=== PATIENT | male | born 1945 | race Caucasian/White ===

== ENCOUNTER 2016-07-04 10:00 | Inpatient (IN) | payer BC, MEDICARE ==
[~2016-07-04] VITALS: Ht 177.8 cm; Wt 105.7 kg
--- NOTE | ~2016-07-04 | DS ---
PATIENT'S NAME: LALITA PABON [facility] AGE: 70 Y [address] ROOM: [address] [place], [place] [address] LOCATION: GPCU ADMIT DATE: 07/04/2016 Discharge Summary DISCHARGE DATE: 07/12/2016 FAMILY PHYSICIAN: Sharon Jenkins MD ATTENDING PHYSICIAN: Gabe Haynes HOSPITAL COURSE: The patient is a 70-year-old white male who was transferred here from [facility] and Dr. Gonzalez for findings that include severe aortic stenosis and multivessel coronary artery disease. He was accepted in transfer for anticipated aortic valve replacement and coronary artery bypass grafting. In addition, he had a history with a right index finger osteomyelitis, and we were asked to continue him on antibiotic therapy through July [address] Rivera in [place], infectious disease specialist. Orthopedic consult was also warranted and Dr. Resendiz provided this service in order to decide whether the patient would undergo an irrigation and debridement and removal of an antibiotic spacer and fusion of the digit or a primary amputation. These details were worked out prior to our heart surgery with a decision being made that this will be determined at a later date. On 07/06/2016, the patient presented to the operative suite for an aortic valve replacement with a 25 Magna Ease bioprosthetic valve as well as coronary artery bypass grafting x5 vessels. This consisted of a left internal mammary artery bypass to the left anterior descending artery, a reverse saphenous vein graft to the diagonal, reverse saphenous vein graft to the obtuse marginal #1, reverse saphenous vein graft to obtuse marginal #2, and reverse saphenous vein graft to the acute marginal. The patient tolerated the surgery without complication and transferred up to the ICU postoperatively. He extubated without complication on the same operative day. His lines and drips were discontinued by postoperative day one. He was initiated on Coumadin for the aortic valve replacement. He was transferred to the progressive care floor. The patient was maintained on his antibiotic therapy, Cubicin for the right index finger osteomyelitis. He worked with cardiac rehab for reconditioning. His chest tubes, pacemaking wires, and Coles catheter were discontinued in the routine postoperative timeframe. The patient had no complications with postoperative atrial fibrillation. He had no wound healing issues as well. Overall, the patient had an uneventful hospital course and was deemed stable for discharge on 07/12/2016. Care Management worked with the patient for any discharge details. He required no home health care nursing or any skilled care. He did require continuation of his IV antibiotic infusions of Cubicin that he was receiving at the [facility]. These arrangements were made by the Care Management and orders sent for continuum of care. DISCHARGE ORDERS: Include a cardiac prudent diet. Activity levels as per the open heart surgery discharge summary sheet. The patient was asked to follow PATIENT'S NAME: LALITA PABON [facility] AGE: 70 Y [address] ROOM: [id number] [place], [place] [address] LOCATION: GPCU ADMIT DATE: 07/04/2016 Discharge Summary DISCHARGE DATE: 07/12/2016 FAMILY PHYSICIAN: Sharon Jenkins MD ATTENDING PHYSICIAN: Gabe Haynes up with Dr. Haynes, Dr. Gonzalez, and Dr. Rivera. Appointments were made at discharge. The patient will present to the [facility] on the evening of July 12 and July 13 for two more IV infusions of Cubicin, which will conclude his required dosages. He will follow with cardiac rehab and arrangements will be made for this to occur at the [facility]. The patient will also set up with an orthopedic provider in [place] regarding his right index finger, and the patient is going to do this on his own. We will have a PT/INR drawn on of this week and faxed over to our office for adjustment. The patient will require no dressing changes. FINAL DIAGNOSES: Includes: 1. Severe aortic stenosis. 2. Multivessel coronary artery disease. 3. Dyslipidemia. 4. Hypothyroidism. 5. History of pancreatic cancer, status post Whipple procedure. 6. Osteoarthritis. 7. Right index finger osteomyelitis. 8. Gastroesophageal reflux disease. DISCHARGE MEDICATIONS: Include: 1. Levothyroxine 75 mcg daily. 2. Acidophilus one tablet b.i.d. 3. Prilosec 20 mg daily. 4. Tylenol 325 to 650 mg q.4 hours p.r.n. pain. 5. Aspirin 81 mg daily. 6. Lipase/protease/amylase capsule 93459 units orally three times a day with meals. 7. Cubicin 500 mg at bedtime. 8. Amiodarone 200 mg twice a day. 9. Carvedilol 3.125 mg daily. 10. Colace 100 mg daily. 11. Lasix 40 mg daily. 12. Lisinopril 2.5 mg twice a day. 13. MiraLax 17 g daily/p.r.n. 14. Coumadin 2.5 mg daily. 15. Potassium chloride 20 mEq twice a day. 16. Albuterol HFA two puffs per inhalation q.6 hours and p.r.n. shortness of breath. 17. Gillette 5/325 one to two every 4 to 6 hours as needed. 18. Restore Hydrogel to apply topically daily after showering. 19. Ferrous sulfate one tab daily. The patient verbalizes understanding of the discharge instructions. The patient is discharged to home in stable condition. PATIENT'S NAME: LALITA PABON [facility] AGE: 70 Y [address] ROOM: [place] [address] [facility] AD[facility] DATE: 07/04/2016 Discharge Summary DISCHARGE DATE: 07/12/2016 FAMILY PHYSICIAN: Sharon Jenkins MD ATTENDING PHYSICIAN: Gabe Haynes PAL LOZANO APRN FOR GABE HAYNES DO DLQ/modl /[id number] d: 07/28/16 0340 t: 08/01/16 1704, DISCHARGE SUMMARY
--- NOTE | ~2016-07-04 | HP ---
PATIENT'S NAME: LALITA PABON [facility] AGE: 70 Y [address] ROOM: [address] [place], [place] [address] LOCATION: GPCU ADMIT DATE: 07/04/2016 History & Physical DISCHARGE DATE: FAMILY PHYSICIAN: Sharon Jenkins MD ATTENDING PHYSICIAN: Gabe Haynes DATE OF SERVICE: CHIEF COMPLAINT: Multivessel coronary artery disease/severe aortic stenosis. HISTORY OF PRESENT ILLNESS: The patient is a very pleasant 70-year-old white male, who was transferred here from [facility] by Dr. Gonzalez for surgical revascularization as well as an aortic valve replacement. Overall, the patient has been stable with really no symptomatology. Interestingly, his story starts out with having a traumatic accident to his right index finger whereby he cut it with a chain saw and tore the ligament. This involved the distal interphalangeal joint. It became infected, and he was working with the Infectious Disease team. He was being seen by Dr. Rivera in [place]. During the course of the examination, a heart murmur was noted. The patient was sent to a icing mixer to have this evaluated. On June 02, 2016, the patient underwent a FARIDA with Dr. Gonzalez, which revealed severe aortic stenosis consisting of a peak velocity of 4.4 m/sec with a mean gradient of 49, and a calculated aortic valve area of 0.7 cm2. The ejection fraction was noted to be at 60% to 65%. From their, a discussion of an aortic valve replacement ensued. The patient went electively on Sunday to have a cardiac catheterization for delineation of coronaries prior to undergoing an aortic valve replacement. What was found was multivessel coronary artery disease with occlusion to the LAD, diagonal, circumflex, and to the right system as well. Dr. Gonzalez spoke to the patient with regard to undergoing coronary artery bypass grafting as well as aortic valve replacement, for which the patient consented. With regard to the right index finger osteomyelitis, the patient has been on Cubicin IV antibiotics for septic arthritis/osteomyelitis. This was diagnosed on 06/01/2016. The patient is required to complete 6 weeks of IV antibiotics, which will conclude after the dosage on July 13, 2016. In addition, the patient underwent an incision and debridement of the right index finger, for which pinning and antibiotic cement were placed. The patient is going to need further evaluation of the digit. The patient's physician in [place] has left [facility], and the patient is without an orthopedic provider. He will either require an amputation or removal of the cement with placement of an indefinite pin. We will assist in getting this consultation accomplished as well. PATIENT'S NAME: LALITA PABON [facility] AGE: 70 Y [address] ROOM: [place] [address] [facility] ADMIT DATE: 07/04/2016 History & Physical DISCHARGE DATE: FAMILY PHYSICIAN: Sharon Jenkins MD ATTENDING PHYSICIAN: Gabe Haynes PAST MEDICAL HISTORY: Illnesses: Pancreatic cancer, dyslipidemia, osteoarthritis, hypothyroidism, GERD, right index finger osteomyelitis/septic arthritis. Surgery/procedures: Whipple procedure, pancreatic mesh screen, incision and debridement of the right index finger with pinning and antibiotic cement procedure. ALLERGIES: CHLORHEXIDINE, WHICH CAUSES SEVERE RASH; ZYVOX, WHICH CAUSES FACIAL EDEMA AND TONGUE SWELLING; STATINS, WHICH IS MORE OF AN INTOLERANCE CONSISTING OF LEG ACHE. SOCIAL HISTORY: The patient is single. 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 He has a very remote tobacco history having smoked at the age of 16 for just 2 years. He does drink approximately 6 beers a day. He does vape marijuana and does this approximately 2 or 3 times a week. FAMILY HISTORY: His mother was known to be healthy, lived to an old age of 101. His father has a myocardial infarction at age 52. MEDICATIONS: 1. Tylenol 325 mg 1 to 2 every 4 hours p.r.n. mild pain. 2. Aspirin 81 mg daily. 3. Acidophilus 1 tablet b.i.d. 4. Levothyroxine 75 mcg daily. 5. Zenpep 2 capsules with each meal. 6. Omeprazole 20 mg daily. 7. Oxycodone 5 mg p.o. t.i.d. 8. Cubicin IV to be administered through July 13, 2016. SYSTEM REVIEW: GENERAL: No change in weight or appetite. No fever, chills, or sweats. No excessive fatigue. Overall, the patient has not had any symptomatology from his aortic stenosis or multivessel coronary artery disease. HEENT: Does have some age-related visual changes. Does wear glasses. No hearing complaints. No difficulty swallowing, change in voice, or hoarseness. He does have his own teeth. He has not had any dental issues consisting of sore gums, bleeding. He uses a waterpik. RESPIRATORY: No unusual cough, wheezing, or history of asthma. No complaints of shortness of breath, PND, or TREJO. CARDIOVASCULAR: No chest pain, chest pressure, or palpitations. Does have PATIENT'S NAME: LALITA PABON [facility] AGE: 70 Y [address] ROOM: [place] [address] [facility] ADMIT DATE: 07/04/2016 History & Physical DISCHARGE DATE: FAMILY PHYSICIAN: Sharon Jenkins MD ATTENDING PHYSICIAN: Gabe Haynes findings of a new murmur. No intermittent claudication. No complaints of edema. GI: Does have a history of GERD, for which he takes medication. No continuous nausea, vomiting, constipation, or diarrhea to complain of. : Does have a urinary frequency and some trouble starting of urinary stream. MUSCULOSKELETAL: Does not require ambulatory devices. He does, however, have a fairly significant right osteoarthritis and knee pain. He has had the right index finger traumatic injury from the chain saw. That finger overall has been rendered "useless," and if it does require amputation, he is okay with that as well. NEUROLOGIC: No frequent or severe headaches. No history of seizures, memory loss, or syncope. ENDOCRINE: No history of diabetes. He does have hypothyroidism, for which he takes medication. INTEGUMENT: No known skin diseases. PHYSICAL EXAMINATION: VITAL SIGNS: Blood pressure 157/86, pulse is 80, respirations 18, temp 97.8, O2 saturations 98% on room air, weight is 100.8 kg, height is 177.8 cm. GENERAL: He is very pleasant. He is in no acute distress. He appears younger than his stated age. HEENT: Normocephalic with EOMIs intact. Teeth appear to be in good repair. NECK: No palpable lymphadenopathy or thyromegaly. LUNGS: Clear to auscultation bilaterally. CARDIOVASCULAR: Regular rate and rhythm with murmur noted. ABDOMEN: Soft, nontender by 4 quadrants with positive bowel sounds throughout. EXTREMITIES: No overt varicosities or edema. MUSCULOSKELETAL: Good range of motion to bilateral upper and lower extremities. The right index finger is stiff, somewhat swollen but is scabbed over with no open areas. LABORATORY DATA: Lab and test results are as per HPI. IMPRESSION: 1. Multivessel coronary artery disease. 2. Severe aortic stenosis. 3. Right index finger osteomyelitis/septic arthritis. RECOMMENDATIONS AND PLAN: Dr. Haynes spoke to the patient with regard to the findings of the echocardiogram and the cardiac catheterization. Per the cardiac catheterization, the patient will need five-vessel bypass consisting of an PATIENT'S NAME: LALITA PABON [facility] AGE: 70 Y [address] ROOM: [place] [address] [facility] ADMIT DATE: 07/04/2016 History & Physical DISCHARGE DATE: FAMILY PHYSICIAN: Sharon Jenkins MD ATTENDING PHYSICIAN: Gabe Haynes LAD, obtuse marginal x2, diagonal, and RCA, also an aortic valve replacement. Valve types tissue versus mechanical were discussed as well as the risks and benefits of each type. The patient does wish to proceed with a tissue valve. Risks and benefits of surgery were discussed. Discussion of the risks includes, but were not limited to, bleeding, requiring transfusion, return to the operative suite, myocardial infarction, cerebrovascular accident, renal and/or pulmonary failure. Also discussed were arrhythmias and infection as well as operative and postoperative mortality. The length of stay and restrictions following the surgery were discussed. The patient will likely go to his girlfriend's home in [place] following his surgery for recuperation. In addition, we will have a member of the orthopedic team come and review the patient's surgical notes regarding the right index finger surgery and help determine what may be required as a next step. We will continue antibiotic therapy through July 13, 2016. We have spoken with Dr. Rivera who did state that the antibiotics could be changed over to vancomycin if needed. We would like to thank Dr. Gonzalez for allowing us to participate in the care of this very pleasant gentleman. PAL LOZANO APRN FOR GABE HAYNES DO DLQ/modl /[id number] D: [id number] T: [id number] HISTORY & PHYSICAL
--- NOTE | ~2016-07-04 | OR ---
PATIENT'S NAME: LALITA ANAND [facility] AGE: 70 Y [address] ROOM: [address] [address] LOCATION: GPCU ADMIT DATE: 07/04/2016 OR/Procedure Report DISCHARGE DATE: FAMILY PHYSICIAN: Sharon Jenkins MD ATTENDING PHYSICIAN: Gabe Adams SURGEON: Gabe Adams DO LOCKSTITCH LINING MAKER: DATE OF PROCEDURE: 07/06/2016 PREOPERATIVE DIAGNOSES: 1. Severe aortic stenosis. 2. Multivessel coronary artery disease. POSTOPERATIVE DIAGNOSES: 1. Severe aortic stenosis. 2. Multivessel coronary artery disease. PROCEDURE: 1. Aortic valve replacement with 25 Magna Ease bioprosthetic valve. 2. Coronary artery bypass grafting x5 with left internal mammary artery bypass to the left anterior descending artery; reverse saphenous vein graft to the diagonal; reverse saphenous vein graft to the obtuse marginal #1; reverse saphenous vein graft obtuse marginal #2; reverse saphenous vein graft to the acute marginal. BRIEF HISTORY: Mr. Anand is a 70-year-old white male with the above-noted diagnosis. He has been brought to the operative suite today for his procedure. Informed consent has been obtained. He was sterilely prepped and draped in the usual fashion for sternotomy with lower extremity vein harvest. A sternal incision was made. The sternum was divided in the midline with sternal saw. Concurrently to this, saphenous vein was harvested endoscopically from the lower extremities. Mammary retractor was placed. The left internal mammary artery was harvested in standard fashion utilizing surgical clips and electrocautery. Prior to its division, the patient was fully heparinized. The mammary was then divided and prepared for bypass. Mammary retractor was removed and a sternal retractor was placed. Pericardium was opened. Pericardial well created. Cannulation sutures placed in the ascending aorta, right atrium, right superior pulmonary vein for bypass and cardioplegia cannulas. The patient was then cannulated and connected to the bypass pump without difficulty. The vein was then prepared for bypass. Cardiopulmonary bypass was initiated. Crossclamp was applied. Antegrade and retrograde cardioplegia was given along with topical cold saline for cardiac arrest. During this time period, we also placed a cannula through the right superior pulmonary vein into the left ventricle for decompression during valve replacement. The ascending aorta was then opened, heavily calcified PATIENT'S NAME: LALITA ANAND [facility] AGE: 70 Y [address] ROOM: [place] [address] LOCATION: GPCU ADMIT DATE: 07/04/2016 OR/Procedure Report DISCHARGE DATE: FAMILY PHYSICIAN: Sharon Jenkins MD ATTENDING PHYSICIAN: Gabe Adams trileaflet valve was encountered, and the left and right coronary leaflets were essentially fused for functional bicuspid valve. The valve leaflets were excised. The anulus was debrided. Copious amounts of irrigation was used to irrigate the aortic annulus and the ascending aorta. We sized to a 25 and turned our attention to the acute marginal. This was a nondominant system, no significant communication between the right and left sides were encountered and there was a good size acute marginal. We anastomosed the vein graft to this in end-to-side fashion and sized it appropriately and connected to the cardioplegia system. Another 500 mL of vein graft and retrograde cardioplegia were given and this was done after each distal anastomosis. Similar venous distal anastomoses were then carried out to each of the obtuse marginals and then to the diagonal, and then the NICHOLAS was anastomosed to the left anterior descending, again in end-to-side fashion. Momentarily we removed the bulldog from the internal mammary artery showing good distal flow and an intact anastomosis. We then replaced the bulldogs and gave our dose of cardioplegia. We then turned our attention to the ascending aorta and aortic valve. Retraction sutures placed in the aorta to allow easier visualization. Carbon dioxide was instilled into the operative field. We placed our sutures which were 2-0 Ethibond pledgeted circumferentially throughout the ascending aorta or throughout the aortic anulus and then through the sewing ring of the valve. Cardioplegia was given on a 10-minute basis in a retrograde fashion as well as down the grafts. The valve was seated and secured without difficulty and without obstruction of the coronary ostia. Once this secured into place, the ascending aorta was closed in a double-layered fashion with 3-0 pledgeted Prolene in a running fashion. The patient was placed into a deep Trendelenburg position. Deairing maneuvers were undertaken and the crossclamp was removed. Two atrial and one ventricular temporary pacemaker wires were placed. Atrial pacing at 80 was initiated. We placed a partial occlusion clamp and formed two proximal anastomosis under the partial occlusion clamp. Once these were completed, the partial occlusion clamp was removed, vein grafts de-aired, bulldog was removed, and distal flow was given. During this time period, warm blood was being given in a retrograde fashion and via the grafts. The remaining two grafts were anastomosed to the ascending aorta with a 4.3 and 3.8 Heartstrings device and 6-0 Prolene. With all these completed, each graft had been de-aired and distal sites were hemostatic. Warm blood was now discontinued. The retrograde cannula was removed. Ventilations were now initiated. We now weaned from cardiopulmonary bypass without difficulty. We removed right superior LV vent and removed the right atrial vent and a right atrial retrograde catheter. Appropriate volume was returned from the pump to the patient. The ascending aortic catheter was removed. Three chest tubes were placed, one left pleural, one posterior pericardial, one anterior mediastinal. Copious amounts of antibiotic-infused saline was used to irrigate the sternum and mediastinum. Transesophageal echocardiography showed excellent LV and valvular function with no evidence of valvular leak. The patient's sternum closed with a ZipFix system. Soft tissues closed in a PATIENT'S NAME: LALITA ANAND [facility] AGE: 70 Y [address] ROOM: [place] [address] [facility] ADMIT DATE: 07/04/2016 OR/Procedure Report DISCHARGE DATE: FAMILY PHYSICIAN: Sharon Jenkins MD ATTENDING PHYSICIAN: Gabe Adams, and he was then transferred to the intensive care unit in stable condition. DO RODOLFO LI/modl /[id number] CC: Sharon Jenkins MD d: 07/10/16 1731 t: 07/11/16 1010, OPERATIVE SUMMARY
--- NOTE | ~2016-07-04 | PUL ---
PATIENT'S NAME: LALITA PABON [facility] AGE: 70 Y [address] ROOM: [facility] [place], [place] [address] LOCATION: [facility] ADMIT DATE: 07/04/2016 Pulmonary DISCHARGE DATE: FAMILY PHYSICIAN: Sharon Jenkins MD ATTENDING PHYSICIAN: Gabe Adams NAME OF PROCEDURE: Bedside Spirometry DATE OF PROCEDURE: July 04, 2016 TECH: TMeents, JIG BUILDER REASON FOR EXAM: Pre-surgical evaluation RESULTS: FVC was 4.39 liters which is 102% of predicted and normal, FEV1 was 3.29 liters which is 105% of predicted and normal, and FEV1/FVC was 74.8% and normal. The flow volume curve did not reveal any significant airflow limitation. After bronchodilator administration FVC increased to 5.09 liters which is a 16% increase and FEV1 increased to 3.48 liters which is a 6% increase. FEV1/FVC was 68.4%. PHYSICIAN INTERPRETATION: The patient has no airflow limitation but has a significant bronchodilator response. MD KATHI MEANS/camila /[id number] dtt: 07/10/16 1101 , CRISTIANO MARSHALL dtd: 07/07/16 0730
--- NOTE | ~2016-07-04 | CON ---
PATIENT'S NAME: LALITA ANAND [facility] AGE: 70 Y [address] ROOM: [id number] [place], [place] [address] LOCATION: GPCU ADMIT DATE: 07/04/2016 Consultation DISCHARGE DATE: FAMILY PHYSICIAN: Sharon Jenkins MD ATTENDING PHYSICIAN: Gabe Adams DATE OF CONSULTATION: 07/05/2016 CHIEF COMPLAINT: Right index finger pain. HISTORY OF PRESENT ILLNESS: Mr. Anand is a pleasant 70-year-old right-hand dominant male. He is with a history of a chainsaw injury to the right index finger. He had been seen and treated by an orthopedic hand surgeon and infectious disease specialist in [place]. The patient has undergone a previous irrigation and debridement, and placement of antibiotic cement spacer and K-wire to treat the digit. The patient is being treated with long-term parenteral antibiotics for osteomyelitis. The patient notes that the hand surgeon that was treating him is subsequently left the community, though he anticipated a revision operation to have the antibiotic spacer removed, the tissue debrided along with bone and have the distal interphalangeal joint of the right index finger fused. I have been asked to see and evaluate the patient on behalf of Dr. Adams, his cardiothoracic surgeon, who is planning on performing an aortic valve replacement and five vessel bypass surgery on July 06, 2016. For continuity of care purposes, Dr. Adams asked that I see and evaluate the patient for this issue. Currently, the patient does not really report much pain in the digits. There are swelling and stiffness secondary to the surgery he has had to the digit. Currently aggravating factors include range of motion of the digit, moving the finger, sensitivity at the tip, and alleviating factors include rest, ice, elevation, nonuse the digit. Currently, the patient denies any constitutional symptoms such as fever, chills, or night sweats. He also denies any dizziness, chest pain, shortness of breath, blurred vision, nausea, vomiting, or diarrhea. PAST MEDICAL HISTORY: Includes hypertension, aortic valve disease, and coronary artery disease. PAST SURGICAL HISTORY: Includes an irrigation and debridement of his right finger and placement of antibiotic spacer on 06/01/2016 by orthopedic hand surgeon in [place]. SOCIAL HISTORY: The patient denies any alcohol, tobacco, or illicit drug use. The patient works as a computer engineering technician. PATIENT'S NAME: LALITA ANAND [facility] AGE: 70 Y [address] ROOM: [address] [place], [place] [address] [facility] ADMIT DATE: 07/04/2016 Consultation DISCHARGE DATE: FAMILY PHYSICIAN: Sharon Jenkins MD ATTENDING PHYSICIAN: Gabe Adams FAMILY HISTORY: There is a history of hypertension in maternal and paternal sides of the family. MEDICATIONS: Currently include, 1. Amicar. 2. Ancef. 3. Bactroban. 4. Cordarone. 5. Cubicin. 6. Potassium chloride. 7. Lactinex. 8. Synthroid. 9. Lopressor. 10. Sodium bicarb. 11. Nitroglycerin. 12. Novolin. 13. Acme. PHYSICAL EXAM: VITAL SIGNS: Temperature 98.1, respirations 16, heart rate is 72, blood pressure 134/86. GENERAL: The patient is awake, alert oriented x3. He is actively conversing at the bedside. He is in no acute distress. HEENT: Normocephalic, atraumatic. Extraocular movements are intact. PERRLA. Moist mucous membranes. The oropharyngeal airway is clear. NECK: Supple. Trachea is in midline. CARDIOVASCULAR: Regular rate and rhythm. CHEST: Normal symmetric respirations are observed bilaterally. ABDOMEN: Soft, nontender, nondistended. PELVIS: Stable. MUSCULOSKELETAL: Right upper extremity: Focal examination of the patient's right upper extremity reveals he is grossly neurologically intact distally. Compartments of the arm, forearm, and hand are soft. There is a palpable radial pulse. Sensation is intact to light touch the AIN/PIN/median/radial/ulnar nerve distributions. The patient does denote some decreased sensation just at the tip of the small finger. Focal examination of the index finger reveals evidence a well-healed dorsal incision over the DIP joint. There was circumferential swelling, some tenderness to palpation distally. There is a wound at the medial aspect of the digit measuring 0.5 cm x 0.5 cm. There is no erythema warmth or drainage. There is stiffness of the MCP joint. PIP and DIP joints of the index finger. There appears to be good capillary refill in the digit. PATIENT'S NAME: LALITA ANAND [facility] AGE: 70 Y [address] ROOM: [id number] [place], [place] [address] LOCATION: GPCU ADMIT DATE: 07/04/2016 Consultation DISCHARGE DATE: FAMILY PHYSICIAN: Sharon Jenkins MD ATTENDING PHYSICIAN: Gabe Adams IMAGING: Plain radiographs of the right hand are currently pending. I do not have previous images to review at this time. LABORATORY VALUES: Include hemoglobin of 13.8, hematocrit of 39.4, white blood cell count of 4.1, platelet count of 100. Chem-7 of sodium 139, potassium 3.9, chloride 107, CO2 of 24, BUN of 9, creatinine of 0.7, and glucose is 99. MRSA by test by PCR is negative in the nares. IMPRESSION: 1. Previous right index finger tip open fracture with subsequent osteomyelitis, requiring irrigation and debridement with placement of antibiotic spacer and K-wire, on parenteral antibiotics. 2. Aortic valve disease. 3. Coronary artery disease. 4. Currently awaiting aortic valve replacement with five-vessel cardiac bypass surgery. PLAN: I had a long discussion with the patient regarding his right upper extremity. Under current circumstances, it appears though the patient will require some sort of revision operation to address the right index finger. I agree with the previous treatment plan which would include a revision irrigation and debridement of the right index finger with removal of the antibiotic spacer, retained K-wire if any, and fusion of the joint. Unfortunately, I explained to the patient that if intraoperatively or if by plain films, the bony tissue is inadequate for fusion, I would recommend a functional amputation of the digit likely to the level of proximal interphalangeal joint. At this time, I would like to obtain plain films of the right hand to further evaluate the current situation. I do not believe that his surgery of the finger should delay his planned cardiothoracic intervention. The patient was both receptive to either a revision and fusion of the index finger tip and functional amputation. I explained to the patient that in my hands, I believe that a functional amputation would be more useful and would certainly eradicate the infection if deeper infection still exists. The patient does report that he is quite frustrated with the current circumstances of the index finger and the sag of treatment currently undergone related to the finger. I discussed with the patient, the risks, benefits, and alternatives pursuing a surgical intervention in detail. I discussed the risks of anesthesia, infection, bleeding, and/or injury to neurovascular structures about the right upper extremity. Again, I would if possible explained that we would opt for either a removal of antibiotics spacer, irrigation and debridement, and fusion of the digit versus primary amputation. According the patient, Dr. Samir Singer, PATIENT'S NAME: LALITA ANAND [facility] AGE: 70 Y [address] ROOM: [place] [address] [facility] ADMIT DATE: 07/04/2016 Consultation DISCHARGE DATE: FAMILY PHYSICIAN: Sharon Jenkins MD ATTENDING PHYSICIAN: Gabe Adams another orthopedic surgeon, has also been consulted to see him for the finger. I will await the patient's decision moving forward on the index finger. I would likely not opt to perform surgery concomitantly with planned cardiothoracic surgery tomorrow. For now, the patient will continue to rest, ice, elevate, and distract the finger. I will recommend Physical Therapy and Occupational Therapy to see the patient for range of motion of the fingers. I have answered all the patient's questions today at the bedside to his satisfaction. MD SONIA OSWALD/zohaib /[id number] d: 07/05/16 1801 t: 07/06/16 0820, CONSULTATION REPORT
--- NOTE | ~2016-07-04 | OR ---
PATIENT'S NAME: LALITA PABON [facility] AGE: 70 Y [address] ROOM: [place] [address] LOCATION: GPCU ADMIT DATE: 07/04/2016 OR/Procedure Report DISCHARGE DATE: 07/12/2016 FAMILY PHYSICIAN: Sharon Jenkins MD ATTENDING PHYSICIAN: Gabe Adams SURGEON: Marizol Reagan MD RUBY DEVELOPER: DATE OF PROCEDURE: 07/06/2016 PROCEDURES PERFORMED: 1. Insertion of central venous catheter. 2. Insertion of a pulmonary artery catheter. 3. Insertion of an arterial line. INDICATIONS FOR PROCEDURE: Intraoperative hemodynamic monitoring and access. DESCRIPTION OF PROCEDURE: After a brief time-out was completed, verifying the correct patient, procedure, and site, the patient was placed in dependent position appropriate for central line placement. The patient's right neck was prepped and draped in the usual sterile fashion. 1 mL 1% lidocaine used to anesthetize the surrounding skin. Using the Seldinger technique and under real-time ultrasound guidance, and a 9-Israeli 10 cm introducer catheter was inserted into right internal jugular vein. The guidewire then was removed. Each lumen of the catheter was evacuated from air and then flushed with sterile saline. The catheter then was sutured in place. A sterile Tegaderm was applied. Attention was then turned to insertion of the patient's [place] pulmonary artery catheter. Next, a 7.5 [place] cone-tip was inserted into the patient's right introducer. Catheter was inserted to 20 cm, the balloon was then inflated. The catheter was then passed through the patient's right atrium into the right ventricle and finally into the main pulmonary artery with the balloon was then deflated and a pulmonary artery tracing was noted. The catheter then was secured into place at 55 cm. Next, insertion of an arterial line in the patient's right wrist, prepped and draped in the usual sterile fashion. 1 mL 1% lidocaine was used as anesthetic surrounding the skin. An Arrow 20-gauge catheter was inserted in the patient's right radial artery. The pulsatile waveform did ensue. The guidewire then was removed. The catheter was secured into place and a sterile Tegaderm was applied. Pulses insertion of the catheter were checked and found to be adequate. The patient tolerated the above procedures well. There were no procedural complications. MARIZOL REAGAN MD PATIENT'S NAME: LALITA PABON [facility] AGE: 70 Y [address] ROOM: [place] [address] [facility] ADMIT DATE: 07/04/2016 OR/Procedure Report DISCHARGE DATE: 07/12/2016 FAMILY PHYSICIAN: Sharon Jenkins MD ATTENDING PHYSICIAN: Gabe Adams/zohaib /[id number] d: 07/12/162050 t: 07/27/16 1412, OPERATIVE SUMMARY
--- NOTE | ~2016-07-04 | ENPV ---
Vascular Lower Extremity Vein Mapping Procedure Demographics Patient Name LALITA PABON Date of Study 07/05/2016 Patient Number [id number] Gender Male Date of 1945 Age 70 Visit Number [id number] Height Accession Number [id number] Weight Room Number G6213 BSA BMI Referring Mehul Palm Silvia Lauren MD Physician Physician Physician Ordering Physician Bryan Pitt Form Maker DO Business Writer Priyank Schwarz RVT, RDCS Conclusions Summary Adequate veins bilaterally for CABG. Procedure Type of Study: Veins:Lower Extremity Vein Mapping, Vein Mapping NH. Indications for Study:Pre-Op CABG. Patient Status:Routine. Study Location:Inpatient Portable. Technical Quality:Adequate visualization. Velocities are measured in cm/s ; Diameters are measured in cm + ++--------++--------+ !Superficial - Great Saphenous Vein !!Right !!Left ! + ++--------++--------+ !Location !!Diameter!!Diameter! + ++--------++--------+ !Sapheno Femoral Junction !!0.5 !!0.45 ! + ++--------++--------+ !GSV High Thigh !!0.4 !!0.4 ! + ++--------++--------+ !GSV Mid Thigh !!0.32 !!0.27 ! + ++--------++--------+ !GSV Low Thigh !!0.29 !!0.18 ! + ++--------++--------+ !GSV Knee !!0.23 !!0.18 ! + ++--------++--------+ !GSV High Calf !!0.26 !!0.23 ! + ++--------++--------+ !GSV Mid Calf !!0.21 !!0.23 ! + ++--------++--------+ !GSV Ankle !!0.21 !!0.2 ! + ++--------++--------+ Signature dtt: dtd: 07/05/16 Cassy Abel
--- NOTE | 2016-07-04 15:56 | NUR ---
Pt is 70 y/o male admit for CAD,aortic stenosis/CABG consult for . Pt alert and oriented x3. Resides at home by himself. Allergies to chlorhexidine,chloraprep,statins,Zyvox. Red and yellow bracelet on. Hx pancreatic cancer,hypercholest,hypothyroid,gerd,murmur,CAD,R)knee OA, urgency/frequency,diff w stream. Pt came via ambulance from [facility]. Also has R)index finger issue for which ortho is consulting.
[2016-07-04] MEDS ORDERED: ROXICODONE 5MG (5 MG (16:13)
[2016-07-04] MEDS ORDERED: ACIDOPHILUS1 EAC2 PO (16:14)
[2016-07-04] MEDS ORDERED: LEVOTHROID(SYN75 MCG PO (16:14)
[2016-07-04] MEDS ORDERED: PRILOSEC20 MG PO (16:14)
[2016-07-04] MEDS ORDERED: TYLENOL325 MG PO (16:15)
[2016-07-04] MEDS ORDERED: ASPIRIN LO-DOSE81 MG PO (16:15)
[2016-07-04] MEDS ORDERED: ZENPEP DR 5,001 EACH PO (16:16)
--- NOTE | 2016-07-04 16:29 | NUR ---
A&O. HTN 150'S. HR 80'S NS. AFEBRILE. RA. NO C/O PAIN. UP SBA. SITTING IN CHAIR. LS CLEAR. MURMOR PRESENT. CSM WNL. R) INDEX FINGER RED SX SITE OSTEOMYLITIS FROM SAW ACCIDENT. CARDIAC DIET. SL TO L) AC AND R) AC. ORTHO CONSULT FOR FINGER PRIOR TO CABG. MRSA NASAL SWAB 5/3 AM AND CXR 5/3 AM. VD W/O DIFFICULTY, LAST BM THIS AM. PLAN IS CABG THURSDAY 07/06.
[2016-07-05 03:30] LABS: BASOPHIL % 0.7 %; EOSINOPHIL # 0.2 K/uL (0.0-0.5); EOSINOPHIL % 4.7 %; HEMATOCRIT 39.4 % (37.0-53.0); HEMOGLOBIN 13.8 g/dL (11.0-16.0); IMMATURE GRANULOCYTE % 0.2 %; LYMPHOCYTE # 1.5 K/uL (0.8-4.0); LYMPHOCYTE % 32.6 %; MCH 29.6 pg (27.0-34.0); MCV 84.5 fl (83.0-98.0); MONOCYTE # 0.7 K/uL (0.0-1.0); MONOCYTE % 15.2 %; MPV 9.6 fl (9.4-12.4); NEUTROPHIL # (ANC) 2.1 K/uL (1.4-9.0); NEUTROPHIL % 46.6 %; NRBC % 0 /100WBC (0-0.00); PLATELET COUNT 100 K/uL (150-450); RBC 4.66 M/uL (3.50-5.50); RDW-CV 12.3 % (11.9-14.6); WBC 4.5 K/uL (4.0-11.0)
[2016-07-05 03:51] LABS: ALBUMIN 3.2 gm/dL (3.5-5.0); ALK PHOS 65 IU/L (33-138); ALT 34 IU/L (12-78); ANION GAP 11.9 (10.0-19.0); AST 20 IU/L (10-40); BLOOD UREA NITROGEN 9 mg/dL (6-24); CALCIUM 8.4 mg/dL (8.5-10.5); CHLORIDE 107 mMol/L (96-110); CO2 24 mMol/L (22-32); CREATININE 0.7 mg/dL (0.6-1.3); ESTIMATED GFR (MDRD EQUATION) > 60; POTASSIUM 3.9 mMol/L (3.7-5.1); SODIUM 139 mMol/L (135-145); TOTAL BILIRUBIN 0.7 mg/dL (0.0-1.5); TOTAL PROTEIN 6.2 g/dL (6.0-8.4)
--- NOTE | 2016-07-05 05:03 | NUR ---
A/O. HR 60-80s. SBP 110-130s. AFEBRILE. ROOM AIR. DENIES PAIN. NO BM. UP AD LUCILA IN ROOM. PLAN FOR CABG SUNDAY.
[2016-07-05 10:59] LABS: PROTIME 10.5 SECONDS (9.8-11.4)
[2016-07-05 11:47] LABS: BICARBONATE 26.4 mmol/L (18.0-23.0); PCO2 38 mmHg (35-45); PO2 83 mmHg (80-90)
--- NOTE | 2016-07-05 12:39 | NUR ---
Introduced self and role of care management to patient. He lives by himself in [facility]. He states that he is able to do all his own ADL's. We discussed his CABG that is scheduled for tomorrow. I explained that he would go to ICU from surgery and depending on how well he is doing he could move back to PCU as early as Sunday. I explained that expected length of stay is 5-7 days. We discussed having chest tubes and multiple IV medciations after surgery. We discussed the heart hugger and its use. I explained that he would not be able to do any pushing, pulling, or lifting. He states that he has a girlfriend in [place] that he will go stay with on discharge. He verbalized understanding. He denies any needs at this time. Will continue to follow.
[2016-07-05 15:19] LABS: BILIRUBIN URINE NEGATIVE (NEGATIVE); BLOOD URINE NEGATIVE /UL (NEGATIVE); COLOR URINE YELLOW (YELLOW); GLUCOSE URINE NEGATIVE (NEGATIVE); KETONE URINE NEGATIVE (NEGATIVE); LEUKOCYTES URINE NEGATIVE /UL (NEGATIVE); NITRITE URINE NEGATIVE (NEGATIVE); PROTEIN URINE NEGATIVE (NEGATIVE); TURBIDITY URINE CLEAR (CLEAR); UROBILINOGEN URINE NORMAL (NORMAL)
--- NOTE | 2016-07-05 15:24 | NUR ---
Significant Event: A/O X 3. UP AD LUCILA. DULL HEADACHE, NORCO WITH RELIEF. VEIN MAPPING, CAROTID DOPPLERS, UA/CS SENT, LABS OBTAINED. PREPARING FOR OPEN HEART IN A.M. STARTED SURGICAL CHECK LIST. Follow up: WILL NEED SHOWER THIS P.M., BUT NO WIPES. RECORD HT/WT ON ORDER SET, START NABICARB AT 2400.
[2016-07-06 13:46] LABS: ALPHA ANGLE 64 degrees; CLOT FORMATION TIME 132 seconds; CLOTTING TIME 217 seconds; CLOTTING TIME 56 seconds (43-82); MAXIMUM CLOT FIRMNESS 54 mm; MAXIMUM LYSIS 0 %
[2016-07-06 13:48] LABS: MCV 85.8 fl (83.0-98.0); MPV 9.9 fl (9.4-12.4); RDW-CV 12.4 % (11.9-14.6); WBC 10.9 K/uL (4.0-11.0)
[2016-07-06 13:49] LABS: MCH 29.7 pg (27.0-34.0); MCHC 34.6 gm/dL (32.0-36.5); PLATELET COUNT 65 K/uL (150-450); RBC 3.03 M/uL (3.50-5.50)
[2016-07-06 13:59] LABS: INR - (THERAPEUTIC) 1.41 (0.92-1.07); PROTIME 14.9 SECONDS (9.8-11.4)
[2016-07-06 14:00] LABS: PTT 37 SECONDS (25-32)
[2016-07-06 14:32] LABS: ALPHA ANGLE 60 degrees; CLOTTING TIME 198 seconds
[2016-07-06 14:33] LABS: ALPHA ANGLE 61 degrees (70-81); CLOT FORMATION TIME 162 seconds; CLOTTING TIME 88 seconds (43-82); MAXIMUM CLOT FIRMNESS 49 mm; MAXIMUM CLOT FIRMNESS 50 mm (51-72); MAXIMUM LYSIS 0 %
[2016-07-06 14:37] LABS: BICARBONATE 23.4 mmol/L (18.0-23.0); PO2 67 mmHg (80-90)
[2016-07-06 14:40] LABS: PCO2 51 mmHg (35-45)
[2016-07-06 14:50] LABS: BLOOD UREA NITROGEN 11 mg/dL (6-24); CALCIUM 7.7 mg/dL (8.5-10.5); CHLORIDE 108 mMol/L (96-110); CO2 25 mMol/L (22-32); SODIUM 142 mMol/L (135-145)
[2016-07-06 14:52] LABS: ANION GAP 12.8 (10.0-19.0); CREATININE 1.1 mg/dL (0.6-1.3); ESTIMATED GFR (MDRD EQUATION) > 60
[2016-07-06 15:06] LABS: POTASSIUM 3.8 mMol/L (3.7-5.1)
[2016-07-06 15:42] LABS: BICARBONATE 26.6 mmol/L (18.0-23.0); PCO2 43 mmHg (35-45); PO2 396 mmHg (80-90); POTASSIUM 3.8 mEq/L (3.7-5.1); SODIUM 138 mEq/L (135-145)
[2016-07-06 15:43] LABS: BICARBONATE 26.4 mmol/L (18.0-23.0); PCO2 39 mmHg (35-45); PO2 260 mmHg (80-90)
[2016-07-06 15:44] LABS: POTASSIUM 3.9 mEq/L (3.7-5.1); SODIUM 136 mEq/L (135-145)
[2016-07-06 15:45] LABS: BICARBONATE 24.8 mmol/L (18.0-23.0); PCO2 41 mmHg (35-45); PO2 313 mmHg (80-90); POTASSIUM 5.1 mEq/L (3.7-5.1); SODIUM 135 mEq/L (135-145)
[2016-07-06 15:47] LABS: BICARBONATE 24.1 mmol/L (18.0-23.0); PCO2 52 mmHg (35-45); PO2 180 mmHg (80-90)
[2016-07-06 15:48] LABS: POTASSIUM 4.6 mEq/L (3.7-5.1); SODIUM 139 mEq/L (135-145)
[2016-07-06 15:51] LABS: PCO2 47 mmHg (35-45); PO2 273 mmHg (80-90); POTASSIUM 3.4 mEq/L (3.7-5.1); SODIUM 140 mEq/L (135-145)
[2016-07-06 19:31] LABS: BASOPHIL % 0.2 %; EOSINOPHIL % 0.2 %; HEMATOCRIT 21.7 % (37.0-53.0); IMMATURE GRANULOCYTE # 0.1 K/uL (0.0-0.3); IMMATURE GRANULOCYTE % 0.5 %; LYMPHOCYTE # 1.2 K/uL (0.8-4.0); LYMPHOCYTE % 10.8 %; MCV 85.4 fl (83.0-98.0); MONOCYTE # 2.2 K/uL (0.0-1.0); MONOCYTE % 19.1 %; MPV 9.4 fl (9.4-12.4); NEUTROPHIL % 69.2 %; NRBC % 0 /100WBC (0-0.00); RBC 2.54 M/uL (3.50-5.50); RDW-CV 12.5 % (11.9-14.6); WBC 11.5 K/uL (4.0-11.0)
[2016-07-06 19:32] LABS: HEMOGLOBIN 7.6 g/dL (11.0-16.0); MCH 29.9 pg (27.0-34.0); PLATELET COUNT 150 K/uL (150-450)
[2016-07-06 19:39] LABS: INR - (THERAPEUTIC) 1.27 (0.92-1.07); PROTIME 13.4 SECONDS (9.8-11.4); PTT 43 SECONDS (25-32)
[2016-07-07 00:35] LABS: HEMATOCRIT 24.3 % (37.0-53.0); HEMOGLOBIN 8.4 g/dL (11.0-16.0)
[2016-07-07 01:19] LABS: INR - (THERAPEUTIC) 1.14 (0.92-1.07)
[2016-07-07 04:35] LABS: PCO2 46 mmHg (35-45); PO2 64 mmHg (80-90)
[2016-07-07 04:37] LABS: BICARBONATE 28.5 mmol/L (18.0-23.0)
[2016-07-07 04:52] LABS: ANION GAP 11.1 (10.0-19.0); CALCIUM 7.7 mg/dL (8.5-10.5); CREATININE 1.2 mg/dL (0.6-1.3); POTASSIUM 4.1 mMol/L (3.7-5.1)
[2016-07-07 05:02] LABS: HEMATOCRIT 23.5 % (37.0-53.0); HEMOGLOBIN 8.2 g/dL (11.0-16.0); MCH 29.1 pg (27.0-34.0); MCHC 34.9 gm/dL (32.0-36.5); MCV 83.3 fl (83.0-98.0); MPV 9.9 fl (9.4-12.4); RBC 2.82 M/uL (3.50-5.50); WBC 9.8 K/uL (4.0-11.0)
--- NOTE | 2016-07-07 06:59 | NUR ---
Significant Event: A/O. HR 80-100'S. WEANED LEVO OFF, WEANED EPI TO 2MCG/MIN. MILRINONE OFF. HEAD INCREASED BLEEDINF FROM CHEST TUBE. NOTIFIED DR. HAYNES. GAVE ALBUMIN X1, CELL SAVER X1, PRBC'S X1, CRYO X10 UNITS, PLATELETS X1. DRAINAGE DECREASED TOWARD AM, SLIGHTLY MORE SERO/SANG. HAD 1270ML FROM CHEST TUBE. 1L O2 OVERNIGHT. NO BM. GAVE 2MG IV BUMEX AFTER PRBC'S. 1390ML UOP. UP TO CHAIR WITH 3 ASSIST, TOLERATED WELL. NORCO 2 TABS X3, MORPHINE 2MG X7. Follow up: CONTINUE TO MONITOR.
--- NOTE | 2016-07-07 16:38 | NUR ---
Significant Event: A/OX3, VSS ON 1L PER NC. 1 TAB OF NORCO GIVEN AT 1515 FOR PAIN. PT. DID WALK DOWN TO ROOM 6306 BEFORE RETURNING TO BED. CHEST INCISION COVERED WITH MEPILEX DRESSING-C/D/I, CHEST TUBES DRESSING HAS SMALL AMOUNT OF DRAINAGE NOTED, 160mL SANGIOUS DRAINAGE OUT. LEFT LEG HARVEST SITES X2 ARE SUTURED, NO DRAINAGE NOTED. SLIV TO L)AC, R)AC HAS INSULIN DRIP @ 3.75 UNITS/HR WITH D5LR @ 20mG/HR. ACCUCHECKS CHANGED TO Q2HR, LAST CHECK @ 1500 WAS 97. SOLER INTACT WITH 600mL UOP, NO BM THIS SHIFT. Follow up: CONTINUE WITH POC.
--- NOTE | 2016-07-08 04:10 | NUR ---
Pt a/o x4. VSS on 1L, afebrile. q2 turn. POD 2 5V CABG/AVR. Pacer wires in place, capped. CT 3 to 1 with 60 out, on suction. bilat ac sites. RAC with insulin gtt at 3.75 units/hr. q2 hour fsbs. d5 carrier at 20 per protocol. IVPB abx-daptomycin/ancef. Irving 2 tabs given at 220, morphine 2mg given at 330. Coles with 450 out. Plan: Post cabg cares.
[2016-07-08 04:23] LABS: HEMATOCRIT 23.8 % (37.0-53.0); HEMOGLOBIN 8.4 g/dL (11.0-16.0); MCH 29.5 pg (27.0-34.0); MCHC 35.3 gm/dL (32.0-36.5); MCV 83.5 fl (83.0-98.0); MPV 10.3 fl (9.4-12.4); RBC 2.85 M/uL (3.50-5.50); RDW-CV 13.2 % (11.9-14.6); WBC 11.2 K/uL (4.0-11.0)
[2016-07-08 04:38] LABS: ALBUMIN 3.2 gm/dL (3.5-5.0); ANION GAP 12.2 (10.0-19.0); BLOOD UREA NITROGEN 16 mg/dL (6-24); CALCIUM 8.2 mg/dL (8.5-10.5); CHLORIDE 102 mMol/L (96-110); CO2 26 mMol/L (22-32); CREATININE 1.1 mg/dL (0.6-1.3); ESTIMATED GFR (MDRD EQUATION) > 60; PHOSPHORUS 2.7 mg/dL (2.5-4.9); POTASSIUM 4.2 mMol/L (3.7-5.1); SODIUM 136 mMol/L (135-145)
--- NOTE | 2016-07-08 16:56 | NUR ---
Significant Event: VSS ON ROOM AIR. 2 TABS OF NORCO GIVEN X2, LAST @ 1635, MS @ 1233 FOR COMPLAINTS OF PAIN. ZOFRAN GIVEN @ 1233. IVF D/C'D THIS AM, PUT ON MODERATE SSI WITH AC/HS ACCU-CHECKS, NO COVERAGE @ 1700. MEDIASTINAL CT D/C'D, L)PLEURAL PUT TO IRINA WITH 20mL OUT, DRESSING TO CHEST TUBE SITES ARE C/D/I. CHEST INCISION IS OPEN TO AIR. R)IJ DRESSING REMOVED. SOLER D/C'D, PT. HAS VOIDED 400mL OUT SINCE. PT. WALKED DOWN TO THE END OF RING X2. SLIV'S TO BILATERAL AC. ATE BITES FOR MEALS. STARTED ON IV FERROUS GLUCONATE X5 DAYS, FIRST DOSE GIVEN THIS AFTERNOON, WITH NO REACTION NOTED. Follow up: CONTINUE WITH POC.
[2016-07-09 03:58] LABS: INR - (THERAPEUTIC) 2.58 (0.92-1.07); PROTIME 27.4 SECONDS (9.8-11.4)
--- NOTE | 2016-07-09 04:53 | NUR ---
Pt a/o x4. vss on ra, afebrile. norco 2 tabs given x2 last at 0300. Pt ambulated x1 before bed. Did not eat supper. states no appetite. No bm since 07/05. IV saline locked. Ferritin qday x4 more days. Plan: con't post cabg cares, d/c on sunday?
--- NOTE | 2016-07-09 09:19 | NUR ---
A-SCREENED D/T LOS S/P CABG HT: 70 IN. CBW: 106.7 KG (STANDING SCALE). IBW: 75 KG. BMI: 34.0 LABS: NA 136, K+ 4.4, GLU 82, BUN 16, STATIONARY FIREMAN 1.1, ALB 3.2 5/3-PREALB 23.0 MEDS: COLACE, PRN BOWEL MEDS, ZOFRAN, PEPCID, LACTINEX, CUBICIN, NOVOLOG (MOD SS), LASIX, NORCO, MORPHINE DIET RX: CONSISTENT CARB DIET W/2000 ML FLUID RESTRICTION. PO INTAKE HAS BEEN POOR; REFUSAL-BITES. PT REPORTS HE DOES NOT HAVE MUCH OF AN APPETITE. EST NUTR NEEDS: 6603-1146 KCALS (15-20 KCALS/KG) 113-150 GM PROTEIN (1.5-2.0 GM/KG OF IBW) FLUID PER MD D-AT NUTRITION RISK W/INADEQUATE NUTRIENT INTAKE R/T POOR APPETITE, RECENT SURGERY AEB INTAKE RECORDS, PT REPORT. I-START GLUCERNA TID WITH MEALS, TO PROVIDE ADDITIONAL NUTRIENTS M/E-GOAL: PO INTAKE >/=50% BY NEXT F/U 1)F/U PO INTAKE, SUPPLEMENT, GI, AND POC IN 3-5 DAYS 2)ASSIST NEEDED
--- NOTE | 2016-07-09 16:32 | NUR ---
Significant Event: Alert and oriented X 3. Room air. SBP 140's, 130's and 110's. Cardiac ADA diet 2000 ml fluid restriction. SBA with transfers. Bilateral anticubital IV's, flush well no blood return. ACHS Accuchecks 107, 128 no correction needed. IRINA drain to upper abdomen, 30 ml out this shift. Sternal incision closed, approximated and open to air. [place] 2 tabs given X 2, last given at 1559. Pleasant and cooperative with cares. Follow up:
[2016-07-10 04:26] LABS: BASOPHIL % 0.3 %; EOSINOPHIL # 0.2 K/uL (0.0-0.5); HEMATOCRIT 24.4 % (37.0-53.0); HEMOGLOBIN 8.2 g/dL (11.0-16.0); IMMATURE GRANULOCYTE # 0.1 K/uL (0.0-0.3); IMMATURE GRANULOCYTE % 1.3 %; LYMPHOCYTE # 1.2 K/uL (0.8-4.0); LYMPHOCYTE % 15.8 %; MCH 29.3 pg (27.0-34.0); MCHC 33.6 gm/dL (32.0-36.5); MCV 87.1 fl (83.0-98.0); MONOCYTE % 12.9 %; MPV 10.1 fl (9.4-12.4); NEUTROPHIL % 67.7 %; NRBC % 2.3 /100WBC (0-0.00); RDW-CV 13.6 % (11.9-14.6); WBC 7.5 K/uL (4.0-11.0)
[2016-07-10 04:29] LABS: PLATELET COUNT 194 K/uL (150-450)
[2016-07-10 04:41] LABS: INR - (THERAPEUTIC) 2.68 (0.92-1.07); PROTIME 28.4 SECONDS (9.8-11.4)
[2016-07-10 04:44] LABS: ALBUMIN 2.9 gm/dL (3.5-5.0); ANION GAP 12.1 (10.0-19.0); BLOOD UREA NITROGEN 15 mg/dL (6-24); CALCIUM 7.9 mg/dL (8.5-10.5); CHLORIDE 100 mMol/L (96-110); CO2 27 mMol/L (22-32); CREATININE 0.8 mg/dL (0.6-1.3); ESTIMATED GFR (MDRD EQUATION) > 60; PHOSPHORUS 2.2 mg/dL (2.5-4.9); POTASSIUM 4.1 mMol/L (3.7-5.1); SODIUM 135 mMol/L (135-145)
--- NOTE | 2016-07-10 05:06 | NUR ---
Pt a/o x4. vss on ra, afebrile. ambulated in [place] x1 full lap. SL bilat ACs. Daptomycin given. [place] 1 tab x2 last at 0430. Tejinder with 35 out. voided 700. no bm. Plan: Con't post cabg cares
--- NOTE | 2016-07-10 11:58 | NUR ---
Social visit with patient today. He states that he is feeling good. We discussed discharge plans. He is still planning on going to his girlfriends on discharge. He states that she will not be able to pick him up until Sunday. He denies any needs at this time. Will continue to follow.
--- NOTE | 2016-07-10 16:02 | NUR ---
Significant event: A&Ox3. HR 60-70's. Afebrile. RA. SBP 98-140's. Poor appetite, refused lunch. Given colace, milk of mag, and now a dulcolax suppository, no results currently, Bowel sounds hypoactive this afternoon. Tejinder drain out this morning, site covered with dressing, marked drainage. Sternum open to air, edges approximated. [place] sites sutured. 1+ R) lower extremity edema, 2+ L) lower extremity edema. [place] 1 tab Q4H, PRN for pain, last given at 1230. IV's SL'd. Up walking in [place] today with cardiac rehab. Follow Up: Monitor for BM
--- NOTE | 2016-07-11 04:40 | NUR ---
Pt a/o x4. vss on RA, afebrile. SBA x1. ambulated in [place] x1. POD 5 cabg/avr. no tubes. norco at hs. had bm at shift change last noc-no more throughout the night. at 50% of supper. appetite still deminished but he states its coming back. Plan: Discharge wed
[2016-07-11 04:49] LABS: INR - (THERAPEUTIC) 2.16 (0.92-1.07); PROTIME 22.9 SECONDS (9.8-11.4)
--- NOTE | 2016-07-11 17:12 | NUR ---
Significant event: Uneventful shift. Pain control with norco 1 tab, given twice today. Suppository given, per patient request. Coumadin increased. Follow Up: Home tomorrow.
[2016-07-12 04:33] LABS: PROTIME 17.2 SECONDS (9.8-11.4)
[2016-07-12 04:42] LABS: INR - (THERAPEUTIC) 1.63 (0.92-1.07)
--- NOTE | 2016-07-12 06:00 | NUR ---
Significant Event: Patient is alert/oriented x3. Vital signs are stable. On room air. Patient had 2 bowel movements last night. Voiding adequate amounts. [place] [facility] given x2 last night. Morphine given x1; I explained to patient that we try to avoid giving IV pain medications, especially prior to dismissal, however he stated that he was very uncomfortable because of the pain. Compliant with sternal precautions. Follow up: Dismiss today.
[2016-07-12] MEDS ORDERED: CUBICIN (NON-F500 MG IV (11:10)
[2016-07-12] MEDS ORDERED: CORDARONE,PACE200 MG PO (11:13)
[2016-07-12] MEDS ORDERED: COREG 3.1253.125 MG PO (11:17)
[2016-07-12] MEDS ORDERED: COLACE100 MG PO (11:17)
[2016-07-12] MEDS ORDERED: LASIX40 MG PO (11:21)
[2016-07-12] MEDS ORDERED: PRINIVIL (ZESTRI5 MG PO (11:24)
[2016-07-12] MEDS ORDERED: MIRALAX17 GM PO (11:26)
[2016-07-12] MEDS ORDERED: COUMADIN **IA2.5 MG PO (11:29)
--- NOTE | 2016-07-12 11:30 | NUR ---
Received a call from Antonette Carver APRN this AM stating patient is ready for discharge. He will need to have outpatient antibiotic for Cubicin set up for 07/12 and 07/13 in [place]. I called and spoke with Bharat at the Specialty clinic at the [facility]. Set up outpatient antibiotics. Patient is to be there at 2000 tonight for first dose. I faxed orders and referral information. I updated Latesha MONTALVO.
[2016-07-12] MEDS ORDERED: K-TAB 10MEQ10 MEQ PO (11:32)
[2016-07-12] MEDS ORDERED: PROVENTIL OR V6.7 GM INH (11:38)
[2016-07-12] MEDS ORDERED: NORCO 5-325 TA1 EACH PO (11:40)
[2016-07-12] MEDS ORDERED: [UNRECOGNIZED DRUG - SUPPLY] TOP (11:44)
[2016-07-12] MEDS ORDERED: SLOW FE142 MG PO (11:48)
--- NOTE | 2016-07-12 13:25 | NUR ---
DISMISSED PER WHEEL CHAIR. DISMISSAL INSTRUCTIONS, PRESCRIPTIONS, INSTRUCTIONS ON NEW MEDICATIONS AND POST OPEN HEART INSTRUCTIONS SENT ALONG WITH PT AND FAMILY. BOTH PT AND FAMILY VERBALIZE UNDERSTANDING OF DISCHARGE INSTRUCTIONS. IV SALINE LOCK LEFT IN PT IS TO GO TO [facility] TONIGHT AND TOMORROW NIGHT FOR ATB INFUSIONS AND THEN WILL BE DC'D. PT STATES AWARENESS OF THIS
== END 2016-07-12 13:29 | disposition disaster alternative care site (69) | DRG 220 ==
LOC: GPCU 15:15 → GICU 15:15 → GPCU 15:15 → GICU 07-06 13:22 → GPCU 07-07 12:44
PROVIDERS: Nurse Practitioner Women's Health; ADMIT Thoracic Surgery (Cardiothoracic Vascular Surgery)
PROC: 021309W Bypass Coronary Artery, Four or More Arteries from Aorta with Autologous Venous Tissue, Open Approach (ICD-10-PCS; principal; 2016-07-06)
PROC: 02RF0KZ Replacement of Aortic Valve with Nonautologous Tissue Substitute, Open Approach (ICD-10-PCS; principal; 2016-07-06)
PROC: 02100Z9 Bypass Coronary Artery, One Artery from Left Internal Mammary, Open Approach (ICD-10-PCS; principal; 2016-07-06)
PROC: B24BZZ4 Ultrasonography of Heart with Aorta, Transesophageal (ICD-10-PCS; principal; 2016-07-06)
PROC: 02HQ32Z Insertion of Monitoring Device into Right Pulmonary Artery, Percutaneous Approach (ICD-10-PCS; principal; 2016-07-06)
PROC: 06BQ0ZZ Excision of Left Saphenous Vein, Open Approach (ICD-10-PCS; principal; 2016-07-06)
PROC: 5A1221Z Performance of Cardiac Output, Continuous (ICD-10-PCS; principal; 2016-07-06)
PROC: 03HY32Z Insertion of Monitoring Device into Upper Artery, Percutaneous Approach (ICD-10-PCS; 2016-07-06)
PROC: 02HV32Z Insertion of Monitoring Device into Superior Vena Cava, Percutaneous Approach (ICD-10-PCS; 2016-07-06)
PROC: 30233N1 Transfusion of Nonautologous Red Blood Cells into Peripheral Vein, Percutaneous Approach (ICD-10-PCS; 2016-07-06)
PROC: 30233M1 Transfusion of Nonautologous Plasma Cryoprecipitate into Peripheral Vein, Percutaneous Approach (ICD-10-PCS; 2016-07-06)
PROC: 30233R1 Transfusion of Nonautologous Platelets into Peripheral Vein, Percutaneous Approach (ICD-10-PCS; 2016-07-06)
PROC: 30233R1 Transfusion of Nonautologous Platelets into Peripheral Vein, Percutaneous Approach (ICD-10-PCS; 2016-07-07)
DX: I35.0 Nonrheumatic aortic (valve) stenosis (principal); M86.8X4 Other osteomyelitis, hand; D68.9 Coagulation defect, unspecified; D69.6 Thrombocytopenia, unspecified; I10 Essential (primary) hypertension; I25.10 Atherosclerotic heart disease of native coronary artery without angina pectoris; E78.5 Hyperlipidemia, unspecified; E03.9 Hypothyroidism, unspecified; M19.90 Unspecified osteoarthritis, unspecified site; K21.9 Gastro-esophageal reflux disease without esophagitis; Z79.2 Long term (current) use of antibiotics; Z85.07 Personal history of malignant neoplasm of pancreas; R35.0 Frequency of micturition; Z79.82 Long term (current) use of aspirin; E11.9 Type 2 diabetes mellitus without complications
CPT/HCPCS: J0171; J0282; J0690; J0878; J0885; J1200; J1644; J1650; J1720; J2150; J2250; J2260; J2270; J2405; J2440; J2720; J2916; J3475; J3480; J3490; J7040; J7050; J7060; J7121; P9012; P9016; P9035; P9045; P9047

== ENCOUNTER → 2016-07-26 | Outpatient (CLI) | payer BC, MEDICARE ==
[~2016-07-26] MED LIST: ACIDOPHILUS1 EAC2 PO; ASPIRIN LO-DOSE81 MG PO; COLACE100 MG PO; CORDARONE,PACE200 MG PO; COREG 3.1253.125 MG PO; COUMADIN **IA2.5 MG PO; CUBICIN (NON-F500 MG IV; K-TAB 10MEQ10 MEQ PO; LASIX40 MG PO; LEVOTHROID(SYN75 MCG PO; MIRALAX17 GM PO; NORCO 5-325 TA1 EACH PO; PRILOSEC20 MG PO; PRINIVIL (ZESTRI5 MG PO; PROVENTIL OR V6.7 GM INH; ROXICODONE 5MG (5 MG; SLOW FE142 MG PO; TYLENOL325 MG PO; ZENPEP DR 5,001 EACH PO; [UNRECOGNIZED DRUG - SUPPLY] TOP
[2016-07-26 13:49] LABS: BASOPHIL # 0.1 K/uL (0.0-0.2); BASOPHIL % 1.3 %; EOSINOPHIL # 0.4 K/uL (0.0-0.5); EOSINOPHIL % 6.7 %; HEMOGLOBIN 12.1 g/dL (11.0-16.0); IMMATURE GRANULOCYTE % 0.3 %; LYMPHOCYTE # 1.2 K/uL (0.8-4.0); LYMPHOCYTE % 18.7 %; MCV 90.2 fl (83.0-98.0); MONOCYTE # 0.7 K/uL (0.0-1.0); MONOCYTE % 11.3 %; NEUTROPHIL # (ANC) 3.9 K/uL (1.4-9.0); NEUTROPHIL % 61.7 %; NRBC % 0 /100WBC (0-0.00); WBC 6.3 K/uL (4.0-11.0)
[2016-07-26 13:51] LABS: HEMATOCRIT 36.8 % (37.0-53.0); MCH 29.7 pg (27.0-34.0); MCHC 32.9 gm/dL (32.0-36.5); PLATELET COUNT 408 K/uL (150-450); RBC 4.08 M/uL (3.50-5.50)
[2016-07-26 14:06] LABS: ALBUMIN 3.5 gm/dL (3.5-5.0); ALK PHOS 120 IU/L (33-138); ALT 24 IU/L (12-78); ANION GAP 15.2 (10.0-19.0); AST 19 IU/L (10-40); BLOOD UREA NITROGEN 13 mg/dL (6-24); CALCIUM 8.8 mg/dL (8.5-10.5); CHLORIDE 100 mMol/L (96-110); CO2 25 mMol/L (22-32); CREATININE 1.1 mg/dL (0.6-1.3); ESTIMATED GFR (MDRD EQUATION) > 60; POTASSIUM 4.2 mMol/L (3.7-5.1); SODIUM 136 mMol/L (135-145); TOTAL PROTEIN 7.6 g/dL (6.0-8.4)
[2016-07-26 14:09] LABS: TOTAL BILIRUBIN 1.1 mg/dL (0.0-1.5)
== END | disposition disaster alternative care site (69) ==
LOC: LNHI 13:43
PROVIDERS: Thoracic Surgery (Cardiothoracic Vascular Surgery)
DX: I25.10 Atherosclerotic heart disease of native coronary artery without angina pectoris (principal); I35.9 Nonrheumatic aortic valve disorder, unspecified; R53.83 Other fatigue